=== PATIENT | male | born 1995 | race Caucasian/White ===

== ENCOUNTER 2018-09-03 15:06 | Emergency (ER) | payer BC ==
[~2018-09-03] VITALS: Ht 175.3 cm; Wt 71.4 kg
[2018-09-03 15:22] VITALS: BP 114/65
--- NOTE | 2018-09-03 17:06 | NUR ---
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
[2018-09-03] MEDS ORDERED: DEXT10TA7 PO (17:16)
[2018-09-03] MEDS ORDERED: AMPH20CA7 PO (17:17)
[2018-09-03] MEDS ORDERED: FLUORESCEIN OPHTHALMIC 1 MG STRIP ONE (17:52)
== END 2018-09-03 18:56 | disposition home or self-care (01) ==
LOC: ED 18:50
DX: H57.11 Ocular pain, right eye (principal); H57.89 Other specified disorders of eye and adnexa
CPT/HCPCS: 99283